=== PATIENT | male | born 1950 | race Caucasian/White ===

== ENCOUNTER 2017-01-06 08:50 | Observation (INO) | payer MEDICARE ==
[2017-01-06] VITALS (11 sets, daily range): BP systolic 116–183; BP diastolic 62–86; PULSE 58–82; RESP 12–18; TEMP 98–98.2; O2SAT 95–98
[~2017-01-06] VITALS: Ht 170.2 cm; Wt 92.7 kg
[~2017-01-06 08:50] MED LIST: IOHEXOL 350 MG/ML 100 ML BTL (for Cath Lab) OTHER ONE
--- NOTE | 2017-01-06 09:25 | PD ---
HPI Chief Complaint: Chest Pain Time Seen by Provider: 09:14 Travel History International Travel<30 days: No Contact w/Intl Traveler<30days: No Traveled to known affect area: No History of Present Illness HPI He complains of chest pain. He was packing to head back to [facility] when he developed an upper chest tightness and heaviness. Lasted about one hour. Paramedics were called and brought him in. He is currently chest pain-free. He had 2 aspirin prior to arrival. He denies history of coronary artery disease. He has not had any recent stress testing. Severity symptoms was moderate. He did get diaphoretic. He did get 3 sublingual nitroglycerin sprays which may have helped somewhat. PFS Social History Alcohol Use: No Tobacco Use: No Substance Use: No Allergies-Medications (Allergen,Severity, Reaction): Coded Allergies: No Known Allergies (Unverified , 01/06/17) Reported Meds & Prescriptions Reported Meds & Active Scripts Active Reported [blood pressure med] Glipizide 5 Mg Tab 5 Mg PO DAILY Take 30 minutes before a meal Fosinopril (Fosinopril Sodium) 20 Mg Tab 20 Mg PO DAILY Glucophage (Metformin HCl) 1,000 Mg Tab 1,000 Mg PO BIDPC With a meal Review of Systems General / Constitutional: No: Fever Eyes: No: Visual changes HENT: No: Headaches Cardiovascular: Positive: Chest Pain or Discomfort, Diaphoresis Respiratory: No: Shortness of Breath Gastrointestinal: No: Abdominal Pain Genitourinary: No: Dysuria Musculoskeletal: No: Pain Skin: No Rash Neurologic: No: Weakness Psychiatric: No: Depression Endocrine: No: Polydipsia Hematologic/Lymphatic: No: Easy Bruising Physical Exam Narrative GENERAL: Well-nourished, well-developed patient in no apparent distress. SKIN: Focused skin assessment reveals no rash and nodules. Skin is Warm and dry. HEAD: Atraumatic. Normocephalic. EYES: Pupils equal and round. No scleral icterus. No injection or drainage. ENT: No nasal bleeding or discharge. Mucous membranes pink and moist. NECK: Trachea midline. No JVD. CARDIOVASCULAR: Regular rate and rhythm. No murmur appreciated. RESPIRATORY: No accessory muscle use. Clear to auscultation. Breath sounds equal bilaterally. GASTROINTESTINAL: Abdomen soft, non-tender, nondistended. Hepatic and splenic margins not palpable. MUSCULOSKELETAL: No obvious deformities. No clubbing. No cyanosis. No edema. NEUROLOGICAL: Awake and alert. No obvious cranial nerve deficits. Motor grossly within normal limits. Normal speech. PSYCHIATRIC: Appropriate mood and affect; insight and judgment normal. Data Data Last Documented VS Vital Signs Date Time Temp Pulse Resp B/P Pulse Ox O2 Delivery O2 Flow Rate FiO2 01/06/17 09:40 98 Nasal Cannula 2 01/06/17 09:40 98.2 69 14 183/86 Orders Electrocardiogram (01/06/17 ) Electrocardiogram (01/06/17 09:19) Basic Metabolic Panel (Bmp) (01/06/17 09:19) Ckmb (Isoenzyme) Profile (01/06/17 09:19) Complete Blood Count With Diff (01/06/17 09:19) Prothrombin Time / Inr (Pt) (01/06/17 09:19) Act Partial Throm Time (Ptt) (01/06/17 09:19) Troponin I (01/06/17 09:19) Chest, Single Ap (01/06/17 09:19) Ecg Monitoring (01/06/17 09:19) Iv Access Insert/Monitor (01/06/17 09:19) Oximetry (01/06/17 09:19) Oxygen Administration (01/06/17 09:19) Sodium Chloride 0.9% Flush (Ns Flush) (01/06/17 09:30) CKMB (01/06/17 09:20) CKMB% (01/06/17 09:20) Consult Cardiology (01/06/17 ) Nitroglycerin 2% Oint (Nitroglycerin 2% (01/06/17 11:30) Admit Order (Ed Use Only) (01/06/17 11:25) Labs Laboratory Tests Test 01/06/17 09:20 White Blood Count 6.4 TH/MM3 Red Blood Count 4.98 MIL/MM3 Hemoglobin 14.9 GM/DL Hematocrit 43.0 % Mean Corpuscular Volume 86.4 FL Mean Corpuscular Hemoglobin 30.0 PG Mean Corpuscular Hemoglobin 34.7 % Concent Red Cell Distribution Width 13.0 % Platelet Count 256 TH/MM3 Mean Platelet Volume 9.4 FL Neutrophils (%) (Auto) 64.8 % Lymphocytes (%) (Auto) 25.2 % Monocytes (%) (Auto) 7.3 % Eosinophils (%) (Auto) 1.9 % Basophils (%) (Auto) 0.8 % Neutrophils # (Auto) 4.2 TH/MM3 Lymphocytes # (Auto) 1.6 TH/MM3 Monocytes # (Auto) 0.5 TH/MM3 Eosinophils # (Auto) 0.1 TH/MM3 Basophils # (Auto) 0.1 TH/MM3 CBC Comment DIFF FINAL Differential Comment Prothrombin Time 10.7 SEC Prothromb Time International 1.0 RATIO Ratio Activated Partial 26.0 SEC Thromboplast Time Sodium Level 139 MEQ/L Potassium Level 4.3 MEQ/L Chloride Level 105 MEQ/L Carbon Dioxide Level 26.5 MEQ/L Anion Gap 8 MEQ/L Blood Urea Nitrogen 14 MG/DL Creatinine 0.97 MG/DL Estimat Glomerular Filtration 77 ML/MIN Rate Random Glucose 178 MG/DL Calcium Level 9.1 MG/DL Total Creatine Kinase 114 U/L Creatine Kinase MB 3.2 NG/ML Troponin I 0.19 NG/ML MDM Medical Decision Making Medical Screen Exam Complete: Yes Emergency Medical Condition: Yes Medical Record Reviewed: Yes Differential Diagnosis Differential diagnosis includes UT, angina, pericarditis, pleurisy, GERD, anxiety. Narrative Course I have reviewed the patient's electronic medical record. Patient is never been here before IV placed I reviewed the EKG which shows sinus rhythm but no ectopy or ST elevation I reviewed the chest x-ray which is normal Extended cardiac monitoring shows sinus rhythm without ectopy CBC is normal Metabolic profile is normal CK is normal Troponin is elevated at 0.19 Coagulation studies are normal Patient at worst case having a non-STEMI. He's had 2 aspirin today and I put some nitroglycerin paste on him. I reviewed with the medical residents will admit and consult a appeals and generalist clerk and asked me to place a consult which I did I rechecked him and he is at this time pain free Is difficult to know what to make of these minor troponin elevations but the next that may be more elevated. There are no ST elevations Discussed heparin/Lovenox and beta-blockade with residents but they're already here to see the patient and will add further orders. Critical Care Narrative Aggregate critical care time was 34 minutes. Time to perform other separately billable procedures was not included in the critical care time. My time did not include minutes spent treating any other patients simultaneously or on activities that did not directly contribute to the patient's treatment. The services I provided to this patient were to treat and/or prevent clinically significant deterioration that could result in: Cardiopulmonary arrest, cardiac arrhythmia, myocardial damage I provided critical care services requiring my management, as noted below: Chart data review, documentation time, medication orders and management, vital sign assessments/reviewing monitor data, ordering and reviewing lab tests, ordering and interpreting/reviewing x-rays and diagnostic studies, care of the patient and discussion of the patient with the admitting physicians. Diagnosis Primary Impression: Non-ST elevated myocardial infarction (non-STEMI) Admitting Information Admitting Physician Requests: Richar Crisostomo MD Jan 06, 2017 09:25
[2017-01-06] MEDS ORDERED: SODIUM CHLORIDE 0.9% FLUSH 10 ML FLUSH IVF PRN (09:30)
[2017-01-06] MEDS ORDERED: GLUC1000 PO (09:48)
[2017-01-06] MEDS ORDERED: FOSI20TA PO (09:48)
[2017-01-06] MEDS ORDERED: blood pressure med (09:50)
[2017-01-06] MEDS ORDERED: GLIP5TAB8 PO (09:50)
[2017-01-06 10:08] LABS: AUTOMATED NEUTROPHIL # 4.2 TH/MM3 (1.8-7.7); BASOPHIL # 0.1 TH/MM3 (0-0.2); BASOPHIL % 0.8 % (0.0-2.0); EOSINOPHIL # 0.1 TH/MM3 (0-0.4); EOSINOPHIL % 1.9 % (0.0-4.0); HEMO FLAGS DIFF FINAL; LYMPH % 25.2 % (9.0-44.0); LYMPHOCYTE # 1.6 TH/MM3 (1.0-4.8); MEAN CELL VOLUME 86.4 FL (80.0-100.0); MEAN CORPUSCULAR HGB CONC 34.7 % (32.0-36.0); MONO % 7.3 % (0.0-8.0); NEUT % 64.8 % (16.0-70.0); PLATELET COUNT 256 TH/MM3 (150-450); RED BLOOD COUNT 4.98 MIL/MM3 (4.50-5.90); WHITE BLOOD COUNT 6.4 TH/MM3 (4.0-11.0)
[2017-01-06 10:23] LABS: PROTHROMBIN TIME - PATIENT 10.7 SEC (9.8-11.6)
--- NOTE | 2017-01-06 10:31 | RADRPT ---
EXAM DATE/TIME: 01/06/2017 09:43 [facility] COMPARISON: No previous studies available for comparison. INDICATIONS : Chest pain. MEDICAL HISTORY : None. SURGICAL HISTORY : None. ENCOUNTER: Initial ACUITY: 1 day PAIN SCORE: 7/10 LOCATION: Bilateral chest FINDINGS: Single AP view of the chest. The lungs are clear. Tortuous thoracic aorta. Cardiomediastinal silhouet te otherwise within normal limits. No evidence of pleural effusion or pneumothorax. CONCLUSION: No acute cardiopulmonary disease identified. Carter Rosa MD on January 06, 2017 at 10:28 Board Certified Radiologist. This report was verified electronically.
[2017-01-06 10:40] LABS: ANION GAP 8 MEQ/L (5-15); BICARBONATE 26.5 MEQ/L (21.0-32.0); BLOOD UREA NITROGEN 14 MG/DL (7-18); CHLORIDE 105 MEQ/L (98-107); CREATINE KINASE 114 U/L (39-308); GLOMERULAR FILTRATION RATE 77 ML/MIN (>89); POTASSIUM 4.3 MEQ/L (3.5-5.1); SODIUM (NA) 139 MEQ/L (136-145)
[2017-01-06 10:53] LABS: CKMB 3.2 NG/ML (0.5-3.6)
[2017-01-06] MEDS ORDERED: NITROGLYCERIN 2% OINT 1 GM PACKET TOPICAL ONE (11:30)
--- NOTE | 2017-01-06 11:37 | HHI.HP ---
[facility] Service Family Medicine Primary Care Physician Non-Staff Admission Diagnosis NSTEMI Diagnoses: International Travel<30 Days: No Contact w/Intl Traveler<30days: No Known Affected Area: No History of Present Illness This a 66-year-old male with past medical history significant for type 2 diabetes, dyslipidemia, and hypertension. He is packing to head back to [place] for the next 8 months, they were loading the car this morning when he felt severe chest pressure. This occurred around 0730. The pain was severe and he needed to sit down, then he felt the need to vomit. After vomiting he became diaphoretic, and this worried him enough to call 911. While at home he took 2 aspirins and during the trip to the hospital he was provided with nitroglycerin. He says that the pain is no longer severe he just feels a dull ache in the center of the chest. He denies any jaw pain or left sided upper extremity numbness or weakness. Review of Systems Constitutional: COMPLAINS OF: Diaphoretic episodes, Fatigue, DENIES: Fever, Chills, Dizziness Endocrine: DENIES: Polyuria Eyes: DENIES: Blurred vision, Eye pain, Vision loss, Double Vision Ears, nose, mouth, throat: COMPLAINS OF: Tinnitus, DENIES: Nasal discharge, Throat pain, Hoarseness, Sinus Pain Respiratory: DENIES: Cough, Wheezing, Sputum production, Shortness of breath Cardiovascular: COMPLAINS OF: Chest pain (pressure), DENIES: Syncope, Dyspnea on Exertion, Orthopnea Gastrointestinal: COMPLAINS OF: Nausea, Vomiting, DENIES: Abdominal pain, Constipation, Diarrhea Genitourinary: DENIES: Urinary frequency, Urinary incontinence, Urgency Musculoskeletal: DENIES: Joint Swelling, Back pain, Neck pain Integumentary: DENIES: Rash Hematologic/lymphatic: DENIES: Bruising, Lymphadenopathy Immunologic/allergic: DENIES: Eczema Neurologic: DENIES: Abnormal gait, Seizures, Tremor, Poor Balance Psychiatric: DENIES: Anxiety, Confusion, Depression Past Family Social History Past Medical History Type 2 Diabetes Dyslipemia Hypertension Past Surgical History none Reported Medications Reported Meds & Active Scripts Active Reported [blood pressure med] Glipizide 5 Mg Tab 5 Mg PO DAILY Take 30 minutes before a meal Fosinopril (Fosinopril Sodium) 20 Mg Tab 20 Mg PO DAILY Glucophage (Metformin HCl) 1,000 Mg Tab 1,000 Mg PO BIDPC With a meal Allergies: Coded Allergies: No Known Allergies (Unverified , 01/06/17) Family History DM Social History Live in [place] in a [facility] for 4 months with his and in [place] the rest of the time 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 SKIN: No rashes, ecchymoses or lesions. Cool and dry. HEAD: Atraumatic. Normocephalic. No temporal or scalp tenderness. EYES: Pupils equal round and reactive. Extraocular motions intact. No scleral icterus. No injection or drainage. ENT: Nose without bleeding, purulent drainage or septal hematoma. Throat without erythema, tonsillar hypertrophy or exudate. Uvula midline. Airway patent. NECK: Trachea midline. No JVD or lymphadenopathy. Supple, nontender, no meningeal signs. CARDIOVASCULAR: Regular rate and rhythm without murmurs, gallops, or rubs. RESPIRATORY: Clear to auscultation. Breath sounds equal bilaterally. No wheezes , rales, or rhonchi. GASTROINTESTINAL: Abdomen soft, non-tender, nondistended. No hepato-splenomegaly , or palpable masses. No guarding. MUSCULOSKELETAL: Extremities without clubbing, cyanosis, or edema. No joint tenderness, effusion, or edema noted. No calf tenderness. Negative Homans sign bilaterally. NEUROLOGICAL: Awake and alert. Cranial nerves II through XII grossly intact. Motor and sensory grossly within normal limits. Normal speech. Laboratory Laboratory Tests Test 01/06/17 09:20 White Blood Count 6.4 Red Blood Count 4.98 Hemoglobin 14.9 Hematocrit 43.0 Mean Corpuscular Volume 86.4 Mean Corpuscular Hemoglobin 30.0 Mean Corpuscular Hemoglobin 34.7 Concent Red Cell Distribution Width 13.0 Platelet Count 256 Mean Platelet Volume 9.4 Neutrophils (%) (Auto) 64.8 Lymphocytes (%) (Auto) 25.2 Monocytes (%) (Auto) 7.3 Eosinophils (%) (Auto) 1.9 Basophils (%) (Auto) 0.8 Neutrophils # (Auto) 4.2 Lymphocytes # (Auto) 1.6 Monocytes # (Auto) 0.5 Eosinophils # (Auto) 0.1 Basophils # (Auto) 0.1 CBC Comment DIFF FINAL Differential Comment Prothrombin Time 10.7 Prothromb Time International 1.0 Ratio Activated Partial 26.0 Thromboplast Time Sodium Level 139 Potassium Level 4.3 Chloride Level 105 Carbon Dioxide Level 26.5 Anion Gap 8 Blood Urea Nitrogen 14 Creatinine 0.97 Estimat Glomerular Filtration 77 Rate Random Glucose 178 Calcium Level 9.1 Total Creatine Kinase 114 Creatine Kinase MB 3.2 Troponin I 0.19 Result Diagram: 01/06/1791901/06/17919 Imaging Current Medications Medications (Trade) Dose Ordered Sig/Sukhwinder Route Start Time Stop Time Status Last Admin Sodium Chloride 2 ml 2 ml UNSCH PRN IVF 01/06/17 09:30 (NS 1000 ml Inj) 1,000 ml @ 125 mls/hr Q8H IV 01/06/17 12:00 (Tylenol) 650 mg Q4H PRN PO 01/06/17 11:45 (Zofran Inj) 4 mg Q6H PRN IVP 01/06/17 11:45 (Milk Of Magnesia Liq) 30 ml Q12H PRN PO 01/06/17 11:45 (Senokot) 17.2 mg Q12H PRN PO 01/06/17 11:45 (Heparin Inj) 5,000 units Q8H SQ 01/06/17 12:00 (Narcan Inj) 0.4 mg UNSCH PRN IV 01/06/17 11:45 (Lipitor) 40 mg DAILY PO 01/07/17 09:00 (Aspirin) 325 mg DAILY PO 01/07/17 09:00 (Prinivil) 20 mg DAILY PO 01/07/17 09:00 EKG reviewed sinus rhythm with no ST elevation or depression Assessment and Plan Assessment and Plan This a 66-year-old male with past medical history significant for type 2 diabetes, dyslipidemia, and hypertension. He is being admitted to observation for ACS rule out due to NSTEMI. Code Status Full code Discussed Condition With WDW: Dr. Mcdowell Problem List: (1) Non-ST elevated myocardial infarction (non-STEMI) Status: Acute Plan: Concern for NSTEMI in the patient. Original troponin elevated at 0.19. Cardiology has been consulted continue to monitor and ACS rule out at this time. * Admit to observation * Cardiology consulted recommendations appreciated * Place on telemetry * Start metoprolol 25 mg by mouth every 12 hours * Aspirin 325 mg daily * Morphine 2 mg IV every 30 minutes when necessary chest pain * Nitroglycerin when necessary chest pain * Zofran 4 mg IV every 6 hours when necessary nausea or vomiting * Trending troponin/CK-MB/EKG results pending * CBC, BMP ordered for the a.m. (2) Hypertension Status: Acute Plan: Long-standing history of hypertension * The lisinopril 20 mg by mouth daily * Metoprolol has been added * Hydralazine/clonidine when necessary hypertension (3) DM (diabetes mellitus) Status: Acute Plan: Patient wants a history of type 2 diabetes managed with metformin * Holding metformin * Place on low dose insulin sliding scale (4) Dyslipidemia Status: Acute Plan: Long-standing history of dyslipidemia * Continue patient's atorvastatin (5) Nutrition, metabolism, and development symptoms Status: Acute Plan: Diet: Heart healthy diet Monitor electrolytes and replace accordingly Vitals every 4 DVT prophylaxis via heparin every 8 and SCDs Bedrest with bathroom privileges CODE STATUS: Full code Disposition: Pending results of labs and cardiology recommendations Problem Qualifiers (1) DM (diabetes mellitus): Qualified Code: E11.8 - Type 2 diabetes mellitus with complication, without long-term current use of insulin Je Chirinos MD R2 Jan 06, 2017 11:37
[2017-01-06] MEDS ORDERED: ACETAMINOPHEN 325 MG TAB PO PRN (11:45)
[2017-01-06] MEDS ORDERED: MAGNESIUM HYDROXIDE SUSP 30 ML CUP PO PRN (11:45)
[2017-01-06] MEDS ORDERED: NALOXONE HCL 0.4 MG/ML AMP IV PRN (11:45)
[2017-01-06] MEDS ORDERED: SENNOSIDES 8.6 MG TAB PO PRN (11:45)
[2017-01-06] MEDS ORDERED: ONDANSETRON HCL 4 MG/2 ML VIAL IVP PRN (11:45)
[2017-01-06] MEDS ORDERED: MORPHINE SULFATE 4 MG/ML INJ IV PRN (12:00)
[2017-01-06] MEDS ORDERED: ASPIRIN 81 MG CHEW TAB CHEW ONE (12:00)
[2017-01-06] MEDS ORDERED: METOPROLOL TARTRATE 25 MG TAB PO SCH (12:00)
[2017-01-06] MEDS ORDERED: HEPARIN SODIUM - SQ 10,000 UNITS/ML VIAL SQ SCH (12:00)
[2017-01-06] MEDS ORDERED: NITROGLYCERIN 0.4 MG SL 25 TABS/BTL SL PRN (12:00)
[2017-01-06] MEDS ORDERED: cloNIDine HCL 0.1 MG TAB PO PRN (12:15)
[2017-01-06] MEDS ORDERED: hydrALAZINE HCL 20 MG/ML VIAL IV PRN (12:15)
[2017-01-06] MEDS: SODIUM CHLOR 0.9% 1000 ML INJ 1,000 ML IV SCH ×2 (12:38→20:00)
[2017-01-06] MEDS: INSULIN ASPART SUPPLEMENTAL SCALE SQ SCH ×2 (16:00→21:00)
[2017-01-06] MEDS ORDERED: HEPARIN 25,000 UNITS-D5W 250 ML - PREMIX IV SCH (17:30)
[2017-01-06] MEDS ORDERED: HEPARIN SODIUM - IV 10,000 UNITS/10 ML VIAL IV ONE (17:45)
--- NOTE | 2017-01-06 17:57 | MB ---
cc: ENID JACOBS DATE OF CONSULTATION 01/06/2017 HISTORY Mr. Frost is a 66-year-old white male with a history of diabetes mellitus, dyslipidemia, hypertension. He has no previous history of coronary artery disease. He was loading the car and planning to leave for [place] this morning and developed substernal chest pressure, nausea, vomiting and diaphoresis. He took two aspirins. He was also given nitroglycerine. His pain significantly improved. Currently he is pain free. His troponin is increased and is consistent with non-ST elevation myocardial infarction. PAST MEDICAL HISTORY Positive for: 1. Type 2 diabetes mellitus. 2. Dyslipidemia. 3. Hypertension. MEDICATIONS Include: 1. Glucophage. 2. Fosinopril. 3. Glipizide. ALLERGIES None. SOCIAL HISTORY The patient does not smoke. He drinks two to three drinks a day. He is and accompanied by his . 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 FAMILY HISTORY Negative for heart disease. REVIEW OF SYSTEMS Otherwise negative. PHYSICAL EXAMINATION VITAL SIGNS: Blood pressure 136/79, pulse 72 and regular. HEENT: Negative. 2+ carotid upstroke. No bruits. LUNGS: Clear. HEART: Regular with no murmur, gallop or rub. ABDOMEN: Soft. No bruits. EXTREMITIES: Without edema. NEUROLOGICAL: Grossly nonfocal. EKG was reviewed and showed normal sinus rhythm. Normal axis and intervals. No ST-T changes. LABORATORY DATA Hemoglobin 14.9. Potassium 4.3. Creatinine 0.97. CK 114 and 207. Troponin 0.19 and 3.94. DIAGNOSES 1. Non-ST elevation myocardial infarction. 2. Diabetes mellitus. 3. Hypertension. 4. Dyslipidemia. DISPOSITION Mr. Frost will undergo cardiac catheterization and coronary intervention if necessary. He and his understand the risks and benefits and wish to proceed. We will intensify aggressive modification of his cardiac risk factors. He will follow up with [employer] in [place] after discharge. MD CANDY Rubin/HELENE /5:35 PM /5:44 PM [facility]INE HOSPITALFeliciano
[2017-01-06] MEDS ORDERED: HEPARIN-NS/PF INJ 500 ML ONE (18:17)
[2017-01-06] MEDS ORDERED: NITROGLYCERIN INJ 5 ML ONE (18:18)
[2017-01-06] MEDS ORDERED: MIDAZOLAM HCL 5 MG/5 ML VIAL ONE (18:18)
[2017-01-06] MEDS ORDERED: HEPARIN SODIUM - IV 10,000 UNITS/10 ML VIAL ONE (18:18)
--- NOTE | 2017-01-06 18:34 | EKG ---
Date Performed: 01/06/2017 Time Performed: 09:05:35 PTAGE: 66 years EKG: Sinus rhythm NORMAL ECG NO PREVIOUS TRACING DOCTOR: Yadi Astudillo Interpretating Date/Time 01/06/2017 18:33:24
[2017-01-06] MEDS ORDERED: MIDAZOLAM HCL 2 MG/2 ML VIAL ONE (19:17)
[2017-01-06] MEDS ORDERED: TICAGRELOR 90 MG TAB PO ONE (19:38)
[2017-01-06] MEDS ORDERED: SODIUM CHLOR 0.9% 1000 ML INJ 1,000 ML IV SCH (19:43)
[2017-01-06] MEDS ORDERED: TEMAZEPAM 15 MG CAP PO PRN (19:45)
[2017-01-06] MEDS ORDERED: MISC INFORMATION XX ONE (19:45)
--- NOTE | 2017-01-06 19:55 | CATHPROC ---
[facility] HIS Report Study Information Study Number Scheduled Start Study Start [id number] 01/06/2017 Jan 06 2017 5:54PM Referring Institution Admit Source Facility Department 1 Other [facility] - [facility] Physician and Clinical Staff Initial Yadi Kemp Board Winder Kristen Hampton,RN Board WinderWinnie Lucio,RN Recorder Rinku Mccrary,RT(R) TECH2 Scrub Vlad Aguilar RCIS(BS) Procedures Performed Procedure Location (Site) Vessel Name Angiogram LV LV Ventricle Coronary Angiograms LCA Left Coronary Coronary Angiograms RCA Right Coronary Drug Eluting Inflatio RCA Prox Right Coronary L Heart Cath PTCA RCA Prox Right Coronary Wire insertion Fem Art (right) Femoral Art Equipment Time Outsole Flexer Description Size Mfg Part Number Used/Scraped COPILOT VALVE, BLEEDBACK 18:57 [employer] [id number] Used CONTROL WIRE, BALANCE MIDDLEWEIGHT 19:04 [employer] 190CM [id number] Used 190CM TRANSDUCER, TRUWAVE 17:56 DON IGLESIAS * [id number] Used W/STOCKCOCK 19:19 DAIG/[employer]. [employer] ANGIOSEAL, FR6 VIP FR 6 [id number] Used 17:56 [employer] IND[employer] PACK, CCL CUSTOM * [id number] Used 17:56 [employer] PACER PEN, SKIN DUAL W/ RULER * [id number] Used 19:10 [employer] BALLOON, 2.0 X 12MM EUPHORA 12MM [id number] Used BALLOON, 4.0 X 8MM NC 19:19 [employer] 8MM [id number] Used EUPHORA 18:59 [employer] CATHETER, EXPORT ASPIRATON EXPORTAP Used STENT, 4.0 15 RESOLUTE 19:13 MEDTRONIC 4.0 15 [id number] Used INTEGRITY RX 19:09 [employer] 30 JUAN RAMON INDEFLATOR [id number] Used [id number] 18:57 [employer] SHEATH, FR6.5 PRELUDE 11CM FR 6.5 Used [id number] 17:56 [employer] WIRE, 3MMJ .035 180CM 180CM [id number] Used PROBE COVER, STERILE 17:56 [employer] / [employer] MEDICAL * [id number] Used ULTRASOUND W/ GEL 17:56 NAMIC MANIFOLD, 4 PORT * [id number] Used 17:56 NAMIC TUBING, HIGH PRESSURE 48" 48" [id number] Used 17:56 [employer]ED OMNIPAQUE, 350 MG, 100ML 100ML [id number] Used 18:56 [employer] OMNIPAQUE, 350 MG, 50ML 50ML [id number] Used 17:56 [employer] BLANKET,WARM AIR CCL * [id number] Used 17:56 [employer] SHEATH, FR5 TERUMO (10CM) FR 5 [id number] Used Equipment Model, Serial, Lot Number and Expiration Data Description Model Number Serial Number Lot Number Expiration Date ANGIOSEAL, FR6 VIP [id number] 10-09-2017 CATHETER, EXPORT ASPIRATON [id number] 07-06-2018 SHEATH, FR6.5 PRELUDE 11CM [id number] 10-09-2019 STENT, 4.0 15 RESOLUTE [id number] 05-14-2018 INTEGRITY RX History: Current Medications Medication Dosage/Unit Route Frequency Last Date/Time Taken HEPARIN Statins (any) ASA LISINOPRIL NTG SL Insulin Magnesium CLONIDINE Glucophage History: Allergies Allergy Reaction No Known Allergies History: Risk Factors Family History of Hypertension Dyslipidemia Previous OK Previous Heart Failure Premature CAD Yes Yes No No No Prior Valve Prior PCI Prior CABG Surgery No No No Cerebrovascular Peripheral Artery Chronic Lung On Dialysis Diabetes Diabetes Therapy Disease Disease Disease No No No No Yes Insulin History: Symptoms/Diagnosis Selection Items Chest pain History: Stress Tests Stress or Imaging Studies Performed No History: Other Disease Selection Items HTN History: Other Current Smoker Method Quit Packs a Day Years Used Pack Years No Cigarettes 40 Years Ago 1 20 20 Diabetic Diet Yes Labs Hgb (g/dl) Hct (%) WBC (l/cumm) Platelets (thousands) 12.00-18.00 37.00-55.00 4.80-10.80 140.00-450.00 14.9 43 6.4 256 BUN (mg/dl) Creatinine (mg/dl) BUN:Creatinine (1:x) 8.00-20.00 0.10-9.00 10.00-20.00 14 0.9 15.6 Na (meq/l) K (meq/l) 138.00-146.00 3.80-5.10 139 4.3 Troponin I (ng/ml) CPK-MB (ng/ML) 0.40-2.30 0.00-7.00 3.9 3.2 Medication Medication Total Dose (Bolus/Oral) Medication Total Dosage/Unit 1% XYLOCAINE 20 mL BRILINTA 180 mg FENTANYL 100 mcg HEPARIN 7000 units NTG (IC) 200 mcg VERSED 5 mg Medications (Bolus/Oral) Medication Time Given Dosage/Unit Administered By Reason VERSED 01/06/2017 6:45:00 PM 2 mg Hesher, Winnie 2 mg VERSED given in lab by Winnie Saldaña RN via Peripheral IV. Ordered by Yadi Astudillo. FENTANYL 01/06/2017 6:46:00 PM 50 mcg Hesher, Winnie 50 mcg FENTANYL given in lab by Winnie Saldaña RN via Peripheral IV. Ordered by Yadi Astudillo. 1% XYLOCAINE 01/06/2017 6:48:26 PM 20 mL Hesher, Winnie 20 mL 1% XYLOCAINE given in lab by Winnie Saldaña RN in Right Groin via Subcutaneous. Ordered by Yadi Ford. VERSED 01/06/2017 6:51:00 PM 1 mg Hesher, Winnie 1 mg VERSED given in lab by Winnie Saldaña RN via Peripheral IV. Ordered by Yadi Astudillo. FENTANYL 01/06/2017 6:52:00 PM 25 mcg Hesher, Winnie 25 mcg FENTANYL given in lab by Winnie Saldaña RN via Peripheral IV. Ordered by Yadi Astudillo. HEPARIN 01/06/2017 6:56:00 PM 7000 units Hesher, Winnie 7000 units HEPARIN given in lab by Winnie Saldaña RN via Peripheral IV. Ordered by Yadi Astudillo. VERSED 01/06/2017 7:20:00 PM 2 mg Hesher, Winnie 2 mg VERSED given in lab by Winnie Saldaña RN via Peripheral IV. Ordered by Yadi Astudillo. FENTANYL 01/06/2017 7:21:00 PM 25 mcg Hesher, Winnie 25 mcg FENTANYL given in lab by Winnie Saldaña RN via Peripheral IV. Ordered by Yadi Astudillo. NTG (IC) 01/06/2017 7:22:19 PM 200 mcg Yadi Astudillo 200 mcg NTG (IC) given in lab by Yadi Astudillo via Intra-coronary. Ordered by aYdi Astudillo. BRILINTA 01/06/2017 7:38:00 PM 180 mg Eldaher, Winnie 180 mg BRILINTA given in lab by Winnie Saldaña RN. Ordered by Yadi Astudillo. Medication (Drip) Medication Time Given Dosage/Unit Concentration/Unit Diluent (ml) Solution IV Solutions 01/06/2017 6:22:55 PM 0 mL (IV) 500 NaCl .9 Patient arrived on IV Solutions in Left Hand via Peripheral IV. Pump/Drip Flow = 20 ml/hr using NaCl .9. Ordered by Yadi Astudillo. Initial Case Assessment Cardiovascular HR Rhythm NIBP Chest Pain 65 sr 142/80 0 Edema Present Skin color Skin None Normal Warm Circulatory - Right Pulses Dorsalis Pedis Femoral 2 2 Scale (0,1,2,3,4,d) Circulatory - Left Pulses Dorsalis Pedis Femoral 2 2 Scale (0,1,2,3,4,d) Circulatory - Lower Extremities Color Lower Right Color Lower Left Normal Normal Neurological State Oriented to time-place- Alert Moves all extremities person Respiration - General SpO2 (%) 99 Final Case Assessment Cardiovascular HR Rhythm 68 sr Edema Present Skin color Skin None Normal Warm Dry Circulatory - Right Pulses Dorsalis Pedis Femoral 2 2 Scale (0,1,2,3,4,d) Circulatory - Left Pulses Dorsalis Pedis Femoral 2 2 Scale (0,1,2,3,4,d) Circulatory - Lower Extremities Color Lower Right Color Lower Left Normal Normal Neurological State Oriented to time-place- Alert Moves all extremities person Respiration - General SpO2 (%) O2 (lpm) 97 2 Chronological Log Time Study Chronological Log 18:22:33 Patient arrived via Bed. 18:22:34 Patient Name, D.O.B, / Armband Verified By R.N. 18:22:35 Consent signed by the physician and the patient and verified by the [employer] [facility] staff. 18:22:39 Patient has been NPO for Less than 6Hrs. 18:22:41 Skin Breakdown. none 18:22:44 Patient Warmer Placed on the Table. 18:22:52 Margarita Prominences Protected 18:22:54 A # 18 IV was noted in the Hand (left). Grade = 0 Patient arrived on IV Solutions in Left Hand via Peripheral IV. Pump/Drip Flow = 20 ml/hr using NaCl .9. Ordered by 18:22:55 Yadi Astudillo. 18:22:56 History and physical on the chart or being dictated. Assessment: Initial Case, HR=65 BPM, Rhythm=sr, EDCI=251/80 mmhg, Chest Pain=0, Edema=None, Col or=Normal, Skin = Warm Right Pulses: Júnior Ped=2, Femoral=2 Left Pulses: Júnior Ped=2, Femoral=2 18:22:57 Lower Right Extremities: Color=Normal Lower Left Extremities: Color=Normal Neurological: State=Alert, Ox3, BAILON Respiration: SpO2=99 % 18:23:02 Table restraints applied according to hospital policy 18:23:06 Bilateral groins prepped with 2% chlorhexidine, and with a 3 min. waiting time. 18:28:27 Reference ECG taken 18:28:30 Reference ECG taken Vitals capture started with the following parameters, Patient=Adult, Interval=15 min, Initial P qhrkmcs=157 mmHg, 18:28:35 Deflation Rate=5 mmHg 18:29:09 HR=51 bpm, MAVC=825/82 mmhg, SpO2=97.0 %, Pain=0, Betty=10, Reich=2 18:31:08 HR=81 bpm, UXLP=950/73 mmhg, SpO2=98.0 % 18:33:09 HR=78 bpm, XIXO=531/83 mmhg, SpO2=99.0 % 18:35:10 HR=26 bpm, UANW=902/77 mmhg, SpO2=99.0 %, Pain=0, Betty=10, Reich=2 18:37:08 HR=65 bpm, CEQL=793/80 mmhg, SpO2=99.0 %, Pain=0, Betty=10, Reich=2 18:39:11 HR=60 bpm, NBQH=099/73 mmhg, SpO2=99.0 %, Resp=0 B/min, Pain=0, Betty=10, Reich=2 18:41:08 HR=65 bpm, ZBYQ=400/71 mmhg, SpO2=99.0 %, Resp=13 B/min, Pain=0, Betty=10, Reich=2 18:41:42 Pressure channel 1 zeroed. 18:43:07 HR=69 bpm, BJZA=195/84 mmhg, SpO2=99.0 %, Resp=14 B/min, Pain=0, Betty=10, Reich=2 18:45:00 2 mg VERSED given in lab by Winnie Saldaña RN via Peripheral IV. Ordered by Radha Astudillo 18:45:10 QY=100 bpm, WXPX=862/81 mmhg, PbH1=957.0 %, Resp=8 B/min, Pain=0, Betty=10, Reich=2 18:46:00 50 mcg FENTANYL given in lab by Winnie Saldaña RN via Peripheral IV. Ordered by Lisa Astudillo. 18:47:11 HR=77 bpm, EASH=176/80 mmhg, SpO2=98.0 %, Resp=13 B/min Time Out. Correct patient, correct procedure,correct physician, ,power injector loaded or not l oaded with contrast with 18:47:58 surgical team present. Time Out Concurred by MD, individual staff and SHOT FIREMAN in procedure 18:48:23 Case Start 20 mL 1% XYLOCAINE given in lab by Winnie Saldaña RN in Right Groin via Subcutaneous. Ordered by Baudilio 18:48:26 Yadi. 18:49:00 Access site was Femoral Artery. 18:49:11 HR=53 bpm, PFSE=376/80 mmhg, SpO2=98.0 %, Resp=12 B/min, Pain=0, Betty=10, Reich=2 A PIGTAIL ANG. INFINITI CATHETER FR 5 was advanced over a wire. OMNIPAQUE, 350 MG, 100ML 100ML was used 18:50:03 for injections. 18:51:00 1 mg VERSED given in lab by Winnie Saldaña RN via Peripheral IV. Ordered by Radha Astudillo Recorded Pressure: LV, HR=77, Condition=Condition 1 18:51:07 (Left Ventricle) LV 129/15/17 18:51:14 HR=82 bpm, QMWF=950/79 mmhg, SpO2=97.0 %, Resp=10 B/min, Pain=0, Betty=10, Reich=2 18:52:00 25 mcg FENTANYL given in lab by Winnie Saldaña RN via Peripheral IV. Ordered by Lisa Astudillo. 18:53:07 HR=67 bpm, PQRG=902/66 mmhg, SpO2=97.0 %, Resp=8 B/min, Pain=0, Betty=10, Reich=2 Recorded Pressure: LV, Ao, HR=76, Condition=Condition 1 18:54:00 (Left Ventricle) LV 110/6/10, (Aorta) Ao 132/76/99 18:55:08 HR=69 bpm, TUJO=760/78 mmhg, SpO2=95.0 %, Resp=12 B/min 18:55:13 The LV was injected at 10 cc/sec for a total of 30. OMNIPAQUE, 350 MG, 50ML 50ML used. 18:56:00 7000 units HEPARIN given in lab by Winnie Saldaña RN via Peripheral IV. Ordered by Yadi Astudilol. After removing the current catheter a AR MOD INFINITI CATHETER FR 5 was advanced over a WIRE, 3 MMJ .035 180CM 18:56:06 180CM. OMNIPAQUE, 350 MG, 100ML 100ML was used for injections. 18:56:21 The RCA was injected and visualized at various angles. OMNIPAQUE, 350 MG, 100ML 100ML used . After removing the current catheter a JL 4.0 INFINITI CATHETER FR 5 was advanced over a WIRE, 3 MMJ .035 180CM 18:56:47 180CM. OMNIPAQUE, 350 MG, 100ML 100ML was used for injections. 18:56:56 The LCA was injected and visualized at various angles. OMNIPAQUE, 350 MG, 100ML 100ML used . 18:57:13 HR=32 bpm, WNVZ=208/74 mmhg, SpO2=98.0 %, Resp=11 B/min, Pain=0, Betty=10, Reich=2 Recorded Pressure: Ao, HR=75, Condition=Condition 1 18:57:47 (Aorta) Ao 111/64/85 18:59:10 HR=83 bpm, XQDF=353/72 mmhg, SpO2=96.0 %, Resp=12 B/min, Pain=0, Betty=10, Reich=2 After removing the current catheter a AR 1 GUIDE CATHETER FR 6 was advanced over a WIRE, 3MMJ . 035 180CM 18:59:58 180CM. OMNIPAQUE, 350 MG, 100ML 100ML was used for injections. 19:01:08 HR=81 bpm, RZBW=710/74 mmhg, SpO2=98.0 %, Resp=11 B/min, Pain=0, Betty=10, Reich=2 19:03:09 HR=42 bpm, QWAU=635/80 mmhg, SpO2=98.0 %, Resp=12 B/min 19:04:24 A wire was inserted via Fem Art (right). 19:05:08 HR=63 bpm, BXUO=935/79 mmhg, SpO2=98.0 %, Resp=12 B/min, Pain=0, Betty=10, Reich=2 19:05:25 A WIRE, BALANCE MIDDLEWEIGHT 190CM 190CM was inserted via Fem Art (right). 19:06:52 Activated Clotting Time Drawn 19:06:54 ACT (Normal Range 90-180) = 298 19:07:11 HR=68 bpm, OMYW=195/73 mmhg, SpO2=99.0 %, Resp=13 B/min 19:07:13 A CATHETER, EXPORT ASPIRATON was advanced over a wire. contrast was used for injections. 19:07:25 Catheter was removed, export cath A BALLOON, 2.0 X 12MM EUPHORA 12MM was inserted over WIRE, BALANCE MIDDLEWEIGHT 190CM 190CM via the 19:07:52 RCA. A BALLOON, 2.0 X 12MM EUPHORA 12MM over a WIRE, BALANCE MIDDLEWEIGHT 190CM 190CM in the RCA Pro x was 19:08:23 inflated using a 30 JUAN RAMON INDEFLATOR at 16 juan ramon for 20 sec. 19:09:51 HR=80 bpm, QZPF=491/79 mmhg, Resp=12 B/min, Pain=0, Betty=10, Reich=2 19:10:02 Balloon Removed. 19:11:13 HR=27 bpm, AERK=565/90 mmhg, SpO2=98.0 %, Resp=12 B/min, Pain=0, Betty=10, Reich=2 19:13:11 HR=52 bpm, PVWA=373/88 mmhg, SpO2=97.0 %, Resp=12 B/min A STENT, 4.0 15 RESOLUTE INTEGRITY RX 4.0 15 was advanced through a AR 1 GUIDE CATHETER FR 6 ov er a WIRE, 19:13:30 BALANCE MIDDLEWEIGHT 190CM 190CM. A STENT, 4.0 15 RESOLUTE INTEGRITY RX 4.0 15 was deployed using a 30 JUAN RAMON INDEFLATOR at 9 atmosp heres for 30 19:14:33 seconds in the RCA Prox. 19:15:11 Delivery device removed 19:15:12 HR=71 bpm, UEUA=808/79 mmhg, SpO2=97.0 %, Resp=15 B/min 19:17:13 HR=71 bpm, GGTX=148/77 mmhg, SpO2=98.0 %, Resp=13 B/min A BALLOON, 4.0 X 8MM NC EUPHORA 8MM was inserted over WIRE, BALANCE MIDDLEWEIGHT 190CM 190CM vi a the 19:17:48 RCA. A BALLOON, 4.0 X 8MM NC EUPHORA 8MM over a WIRE, BALANCE MIDDLEWEIGHT 190CM 190CM in the RCA Pr ox 19:18:25 was inflated using a 30 JUAN RAMON INDEFLATOR at 14 juan ramon for 40 sec. 19:19:01 Balloon Removed. 19:20:00 2 mg VERSED given in lab by Winnie Saldaña, RICARDO via Peripheral IV. Ordered by Radha Astudillo 19:20:01 HR=75 bpm, PGSR=529/76 mmhg, LjZ9=288.0 %, Resp=13 B/min, Pain=0, Betty=10, Reich=2 Recorded Pressure: Ao, HR=74, Condition=Condition 1 19:20:29 (Aorta) Ao 149/83/112 Recorded Pressure: Ao, HR=78, Condition=Condition 1 19:20:54 (Aorta) Ao 138/79/107 19:21:00 25 mcg FENTANYL given in lab by Winnie Saldaña, RICARDO via Peripheral IV. Ordered by Lisa Astudillo 19:21:11 HR=67 bpm, UPTX=590/71 mmhg, ZlS0=789.0 %, Resp=13 B/min, Pain=0, Betty=10, Reich=2 Recorded Pressure: Ao, HR=79, Condition=Condition 1 19:21:31 (Aorta) Ao 152/86/117 19:22:19 200 mcg NTG (IC) given in lab by Yadi Astudillo via Intra-coronary. Ordered by Alex Astudillo 19:23:28 HR=82 bpm, QCHG=871/84 mmhg, SpO2=98.0 %, Resp=15 B/min 19:25:00 Balloon Removed. 19:25:12 HR=40 bpm, BXIC=486/84 mmhg, SpO2=96.0 %, Resp=14 B/min 19:25:24 An injection in the ~SITE~ was made through the sheath. Assessment: Final Case, HR=68 BPM, Rhythm=sr, Edema=None, Color=Normal, Skin = Warm, Dry Right Pulses: Júnior Ped=2, Femoral=2 Left Pulses: Júnior Ped=2, Femoral=2 19:25:40 Lower Right Extremities: Color=Normal Lower Left Extremities: Color=Normal Neurological: State=Alert, Ox3, BAILON Respiration: SpO2=97 %, O2=2 lpm 19:27:13 HR=19 bpm, ENXJ=307/85 mmhg, SpO2=99.0 %, Resp=13 B/min 19:29:16 HR=72 bpm, AOVA=353/75 mmhg, SpO2=98.0 %, Resp=12 B/min 19:31:15 HR=26 bpm, EUOV=493/84 mmhg, SpO2=99.0 %, Resp=11 B/min, Pain=0, Betty=10, Reich=2 19:31:43 ANGIOSEAL, FR6 VIP FR 6 placement in the Fem Art (right) 19:32:00 Case End 19:32:03 Sterile dressing applied to site 19:32:04 No case complications noted. 19:32:07 Cine recording checked. 19:32:08 Bedside Report will be given. 19:32:11 Implantable Device card placed in patient's chart. 19:32:14 Contrast Scanned 19:32:16 A Left Heart Cath was performed. PCI QA completed: Pre-Napoleon - 1, Post Napoleon - 3, Type - A, Length - 10 mm, Morphology - Concentri c, Indications - Lesion 19:33:01 > 50 non-stem, Pre-Stenosis - 99% and Post Stenosis - 0%. 19:38:00 180 mg BRILINTA given in lab by Winnie Saldaña RN. Ordered by Yadi Astudillo. 19:42:23 Patient moved to stretcher End Study - Contrast Media Used In Study Contrast Total Opened (mL) Total Used (mL) Total Wasted (mL) Omnipaque 200 175 25 End Study - Maximum Contrast Load Max Contrast Load (mL) 527.8 End Study - Radiation Exposure Fluoro Time (minutes) 6.6 End Study - Sheaths Sheaths Pulled By Sheath Hold Time (min) Yadi Astudillo End Study - Patient Disposition Complications Transferred To Interventional Outcome No Telemetry Bed successful
[2017-01-06] MEDS: METOPROLOL TARTRATE 25 MG TAB PO SCH (22:31)
[2017-01-07] VITALS (18 sets, daily range): BP systolic 115–154; BP diastolic 66–97; PULSE 53–75; RESP 18–20; TEMP 97.8–98.7; O2SAT 95–97
[2017-01-07] MEDS: INSULIN ASPART SUPPLEMENTAL SCALE SQ SCH ×3 (07:00→16:22)
[2017-01-07] MEDS ORDERED: TICAGRELOR 90 MG TAB PO SCH (09:00)
[2017-01-07] MEDS ORDERED: ASPIRIN 325 MG TAB PO SCH ×2 (09:00)
[2017-01-07] MEDS ORDERED: ATORVASTATIN 40 MG TAB PO SCH ×2 (09:00)
[2017-01-07] MEDS ORDERED: LISINOPRIL 20 MG TAB PO SCH (09:00)
[2017-01-07] MEDS: METOPROLOL TARTRATE 25 MG TAB PO SCH (09:17)
[2017-01-07 09:36] LABS: AUTOMATED NEUTROPHIL # 4.1 TH/MM3 (1.8-7.7); BASOPHIL % 0.7 % (0.0-2.0); EOSINOPHIL # 0.1 TH/MM3 (0-0.4); EOSINOPHIL % 0.8 % (0.0-4.0); HEMO FLAGS DIFF FINAL; LYMPH % 25.9 % (9.0-44.0); LYMPHOCYTE # 1.7 TH/MM3 (1.0-4.8); MEAN CELL VOLUME 87.5 FL (80.0-100.0); MEAN CORPUSCULAR HGB CONC 33.1 % (32.0-36.0); MONO % 8.6 % (0.0-8.0); PLATELET COUNT 273 TH/MM3 (150-450); RED BLOOD COUNT 5.03 MIL/MM3 (4.50-5.90); RED CELL DISTRIBUTION WIDTH 12.7 % (11.6-17.2); WHITE BLOOD COUNT 6.4 TH/MM3 (4.0-11.0)
[2017-01-07 10:05] LABS: ANION GAP 10 MEQ/L (5-15); BICARBONATE 26.3 MEQ/L (21.0-32.0); BLOOD UREA NITROGEN 8 MG/DL (7-18); CHLORIDE 105 MEQ/L (98-107); CREATINE KINASE 266 U/L (39-308); GLOMERULAR FILTRATION RATE 105 ML/MIN (>89); HDL CHOLESTEROL 40.2 MG/DL (40.0-60.0); LDL CHOLESTEROL 64 MG/DL (0-99); POTASSIUM 3.8 MEQ/L (3.5-5.1); SODIUM (NA) 141 MEQ/L (136-145)
[2017-01-07 10:26] LABS: CKMB 21.9 NG/ML (0.5-3.6)
--- NOTE | 2017-01-07 11:34 | HHI.HP ---
[facility] Service Family Medicine Primary Care Physician Non-Staff Admission Diagnosis NSTEMI Diagnoses: (1) Non-ST elevated myocardial infarction (non-STEMI) Diagnosis: Principal (2) Hypertension Diagnosis: Principal (3) DM (diabetes mellitus) (4) Dyslipidemia Diagnosis: Principal (5) Nutrition, metabolism, and development symptoms Diagnosis: Principal International Travel<30 Days: No Contact w/Intl Traveler<30days: No Known Affected Area: No History of Present Illness Mr Frost a 66-year-old male with past medical history significant for type 2 diabetes, dyslipidemia, and hypertension. He was packing to head back to [place] for the next 8 months, they were loading the car the morning of admission when he felt severe chest pressure. This occurred around 0730. The pain was severe and he needed to sit down, then he felt the need to vomit. After vomiting he became diaphoretic, and this worried him enough to call 911. While at home he took 2 aspirins and during the trip to the hospital he was provided with nitroglycerin. He says that the pain is no longer severe he just feels a dull ache in the center of the chest. He denies any jaw pain or left sided upper extremity numbness or weakness. He had an increase in his troponins to over 3 and went for cath yesterday where he had a stent placed in his RCA. He feels fine today and has no complaints this am. Review of Systems Other Constitutional: COMPLAINS OF: Diaphoretic episodes, Fatigue, DENIES: Fever, Chills, Dizziness Endocrine: DENIES: Polyuria Eyes: DENIES: Blurred vision, Eye pain, Vision loss, Double Vision Ears, nose, mouth, throat: COMPLAINS OF: Tinnitus, DENIES: Nasal discharge, Throat pain, Hoarseness, Sinus Pain Respiratory: DENIES: Cough, Wheezing, Sputum production, Shortness of breath Cardiovascular: COMPLAINS OF: Chest pain (pressure), DENIES: Syncope, Dyspnea on Exertion, Orthopnea Gastrointestinal: COMPLAINS OF: Nausea, Vomiting, DENIES: Abdominal pain, Constipation, Diarrhea Genitourinary: DENIES: Urinary frequency, Urinary incontinence, Urgency Musculoskeletal: DENIES: Joint Swelling, Back pain, Neck pain Integumentary: DENIES: Rash Hematologic/lymphatic: DENIES: Bruising, Lymphadenopathy Immunologic/allergic: DENIES: Eczema Neurologic: DENIES: Abnormal gait, Seizures, Tremor, Poor Balance Psychiatric: DENIES: Anxiety, Confusion, Depression Past Family Social History Past Medical History Type 2 Diabetes Dyslipemia Hypertension Past Surgical History none Allergies: Coded Allergies: No Known Allergies (Unverified , 01/06/17) Family History DM Social History [facility] [place] [facility] with his and in [place] the rest of the time 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 Denies smoking 2 alcohol a day denies drugs Physical Exam Vital Signs Vital Signs Date Time Temp Pulse Resp B/P Pulse Ox O2 Delivery O2 Flow Rate FiO2 01/07/17 11:00 97.8 53 20 115/66 97 01/07/17 11:00 56 01/07/17 10:00 60 01/07/17 09:00 62 01/07/17 08:00 73 01/07/17 07:52 95 21 01/07/17 07:00 55 01/07/17 07:00 98.3 75 20 127/76 96 01/07/17 06:00 75 01/07/17 05:06 60 01/07/17 04:00 75 01/07/17 04:00 98.0 57 18 154/89 97 01/07/17 03:33 57 01/07/17 02:00 58 01/07/17 01:00 68 01/07/17 00:00 98.0 69 18 150/97 97 01/07/17 00:00 60 01/06/17 23:00 58 01/06/17 22:00 60 01/06/17 21:00 61 01/06/17 20:00 73 01/06/17 19:57 68 01/06/17 19:57 98.2 68 18 116/62 97 01/06/17 19:57 98.2 68 18 116/62 97 01/06/17 15:44 72 12 136/79 97 Nasal Cannula 2 01/06/17 14:31 98.0 76 14 136/72 97 Nasal Cannula 2 01/06/17 14:28 78 14 136/79 98 Nasal Cannula 2 01/06/17 12:45 80 16 129/77 97 Nasal Cannula 2 Physical Exam GENERAL: This is a well-nourished, well-developed patient, in no apparent distress. sitting up in chair after yesterday's cath SKIN: No rashes, ecchymoses or lesions. Cool and dry. HEAD: Atraumatic. Normocephalic. EYES: Pupils equal round and reactive. Extraocular motions intact. No scleral icterus. No injection or drainage. ENT: Nose without bleeding, purulent drainage or septal hematoma. [place] patent. NECK: Trachea midline. No JVD or lymphadenopathy. Supple, nontender, no meningeal signs. CARDIOVASCULAR: Regular rate and rhythm without murmurs, gallops, or rubs. RESPIRATORY: Clear to auscultation. Breath sounds equal bilaterally. No wheezes , rales, or rhonchi. GASTROINTESTINAL: Abdomen soft, non-tender, nondistended. No hepato-splenomegaly , or palpable masses. No guarding. MUSCULOSKELETAL: Extremities without clubbing, cyanosis, or edema. No joint tenderness, effusion, or edema noted. No calf tenderness. Negative Homans sign bilaterally. NEUROLOGICAL: Awake and alert. Cranial nerves II through XII grossly intact. Motor and sensory grossly within normal limits. Normal speech. Laboratory Laboratory Tests Test 01/06/17 01/06/17 01/07/17 01/07/17 13:15 21:45 08:22 08:32 Total Creatine Kinase 207 224 266 Troponin I 3.94 5.96 Sodium Level 141 Potassium Level 3.8 Chloride Level 105 Carbon Dioxide Level 26.3 Anion Gap 10 Blood Urea Nitrogen 8 Creatinine 0.74 Estimat Glomerular Filtration 105 Rate Random Glucose 170 Calcium Level 8.6 Creatine Kinase MB 21.9 Triglycerides Level 304 Cholesterol Level 165 LDL Cholesterol 64 HDL Cholesterol 40.2 Cholesterol/HDL Ratio 4.10 White Blood Count 6.4 Red Blood Count 5.03 Hemoglobin 14.6 Hematocrit 44.0 Mean Corpuscular Volume 87.5 Mean Corpuscular Hemoglobin 29.0 Mean Corpuscular Hemoglobin 33.1 Concent Red Cell Distribution Width 12.7 Platelet Count 273 Mean Platelet Volume 8.9 Neutrophils (%) (Auto) 64.0 Lymphocytes (%) (Auto) 25.9 Monocytes (%) (Auto) 8.6 Eosinophils (%) (Auto) 0.8 Basophils (%) (Auto) 0.7 Neutrophils # (Auto) 4.1 Lymphocytes # (Auto) 1.7 Monocytes # (Auto) 0.6 Eosinophils # (Auto) 0.1 Basophils # (Auto) 0.0 CBC Comment DIFF FINAL Differential Comment Result Diagram: 01/07/17 0832 01/07/17 0822 Imaging Current Medications Medications (Trade) Dose Ordered Sig/Sukhwinder Route Start Time Stop Time Status Last Admin Sodium Chloride 2 ml 2 ml UNSCH PRN IVF 01/06/17 09:30 (NS 1000 ml Inj) 1,000 ml @ 125 mls/hr Q8H IV 01/06/17 12:00 (Tylenol) 650 mg Q4H PRN PO 01/06/17 11:45 (Zofran Inj) 4 mg Q6H PRN IVP 01/06/17 11:45 (Milk Of Magnesia Liq) 30 ml Q12H PRN PO 01/06/17 11:45 (Senokot) 17.2 mg Q12H PRN PO 01/06/17 11:45 (Heparin Inj) 5,000 units Q8H SQ 01/06/17 12:00 (Narcan Inj) 0.4 mg UNSCH PRN IV 01/06/17 11:45 (Lipitor) 40 mg DAILY PO 01/07/17 09:00 (Aspirin) 325 mg DAILY PO 01/07/17 09:00 (Prinivil) 20 mg DAILY PO 01/07/17 09:00 EKG reviewed sinus rhythm with no ST elevation or depression Assessment and Plan Assessment and Plan This a 66-year-old male with past medical history significant for type 2 diabetes, dyslipidemia, and hypertension. He is being admitted to observation for ACS rule out due to NSTEMI. Problem List: (1) Non-ST elevated myocardial infarction (non-STEMI) Status: Acute Plan: Concern for NSTEMI in the patient. Original troponin elevated at 0.19. Cardiology has been consulted continue to monitor and ACS rule out at this time. * Admit to observation, with PR should qualify for inpatient * Cardiology consulted recommendations appreciated went to cath * Placed on telemetry * Start metoprolol 25 mg by mouth every 12 hours, now increased * Aspirin 325 mg daily * Morphine 2 mg IV every 30 minutes when necessary chest pain * Nitroglycerin when necessary chest pain * Zofran 4 mg IV every 6 hours when necessary nausea or vomiting * Trending troponin/CK-MB/EKG results pending, second troponin markedly elevated * CBC, BMP ordered for the a.m. (2) Hypertension Status: Acute Plan: Long-standing history of hypertension * The lisinopril 20 mg by mouth daily * Metoprolol has been added * Hydralazine/clonidine when necessary hypertension (3) DM (diabetes mellitus) Status: Acute Plan: Patient wants a history of type 2 diabetes managed with metformin * Holding metformin * Place on low dose insulin sliding scale (4) Dyslipidemia Status: Acute Plan: Long-standing history of dyslipidemia * Continue patient's atorvastatin (5) Nutrition, metabolism, and development symptoms Status: Acute Plan: Diet: Heart healthy diet Monitor electrolytes and replace accordingly Vitals every 4 DVT prophylaxis via heparin every 8 and SCDs Bedrest with bathroom privileges CODE STATUS: Full code Disposition: Pending results of labs and cardiology recommendations, hopefully tomorrow Physician Certification 2 Midnight Certification Type: Admission for Inpatient Services Order for Inpatient Services The services are ordered in accordance with Medicare regulations or non- Medicare payer requirements, as applicable. In the case of services not specified as inpatient-only, they are appropriately provided as inpatient services in accordance with the 2-midnight benchmark. Estimated LOS (days): 3 3 days is the estimated time the patient will need to remain in the hospital, assuming treatment plan goals are met and no additional complications. Post-Hospital Plan: Home Problem Qualifiers (1) Hypertension: Qualified Code: I10 - Essential hypertension (2) DM (diabetes mellitus): Qualified Code: E11.8 - Type 2 diabetes mellitus with complication, without long-term current use of insulin Winnie Mcdowell MD January 07, 2017 11:34
[2017-01-07] MEDS: SODIUM CHLOR 0.9% 1000 ML INJ 1,000 ML IV SCH (12:00)
--- NOTE | 2017-01-07 16:09 | PD.CARD.PN ---
Subjective Subjective Remarks No CP or SOB, feels well Objective Medications Current Medications Medications (Trade) Dose Ordered Sig/Sukhwinder Route Start Time Stop Time Status Last Admin Sodium Chloride 2 ml 2 ml UNSCH PRN IVF 01/06/17 09:30 (NS 1000 ml Inj) 1,000 ml @ 125 mls/hr Q8H IV 01/06/17 12:00 01/06/17 12:38 (Tylenol) 650 mg Q4H PRN PO 01/06/17 11:45 (Zofran Inj) 4 mg Q6H PRN IVP 01/06/17 11:45 (Milk Of Magnesia Liq) 30 ml Q12H PRN PO 01/06/17 11:45 (Senokot) 17.2 mg Q12H PRN PO 01/06/17 11:45 (Narcan Inj) 0.4 mg UNSCH PRN IV 01/06/17 11:45 (Prinivil) 20 mg DAILY PO 01/07/17 09:00 01/07/17 09:17 (Nitrostat Sl) 0.4 mg Q5M PRN SL 01/06/17 12:00 (Morphine Inj) 2 mg Q30M PRN IV 01/06/17 12:00 (Apresoline Inj) 10 mg Q6H PRN IV 01/06/17 12:15 (Catapres) 0.1 mg Q6H PRN PO 01/06/17 12:15 (Aspirin) 81 mg DAILY PO 01/07/17 09:00 01/07/17 09:16 (Lipitor) 80 mg DAILY PO 01/07/17 09:00 01/07/17 09:16 (Lopressor) 25 mg Q12HR PO 01/06/17 21:00 01/07/17 09:17 (Restoril) 15 mg HS PRN PO 01/06/17 19:45 (Brilinta) 90 mg BID PO 01/07/17 09:00 01/07/17 09:17 Vital Signs / I&O Vital Signs Date Time Temp Pulse Resp B/P Pulse Ox O2 Delivery O2 Flow Rate FiO2 01/07/17 15:00 98.7 59 20 128/72 96 01/07/17 15:00 63 01/07/17 14:00 59 01/07/17 13:00 65 01/07/17 12:00 54 01/07/17 11:00 97.8 53 20 115/66 97 01/07/17 11:00 56 01/07/17 10:00 60 01/07/17 09:00 62 01/07/17 08:00 73 01/07/17 07:52 95 21 01/07/17 07:00 55 01/07/17 07:00 98.3 75 20 127/76 96 01/07/17 06:00 75 01/07/17 05:06 60 01/07/17 04:00 75 01/07/17 04:00 98.0 57 18 154/89 97 01/07/17 03:33 57 01/07/17 02:00 58 01/07/17 01:00 68 01/07/17 00:00 98.0 69 18 150/97 97 01/07/17 00:00 60 01/06/17 23:00 58 01/06/17 22:00 60 01/06/17 21:00 61 01/06/17 20:00 73 01/06/17 19:57 68 01/06/17 19:57 98.2 68 18 116/62 97 01/06/17 19:57 98.2 68 18 116/62 97 I/O 01/06/17 01/06/17 01/06/17 01/07/17 01/07/17 01/07/17 07:00 15:00 23:00 07:00 15:00 23:00 Intake Total 1340 ml Output Total 875 ml Balance 465 ml Intake Oral 240 ml IV Total 1100 ml Output Urine Total 875 ml Physical Exam GENERAL: IN NAD SKIN: Warm and dry. HEAD: Normocephalic. EYES: No scleral icterus. No injection or drainage. NECK: Supple, trachea midline. No JVD or lymphadenopathy. CARDIOVASCULAR: Regular rate and rhythm without murmurs, gallops, or rubs. RESPIRATORY: Breath sounds equal bilaterally. No accessory muscle use. GASTROINTESTINAL: Abdomen soft, non-tender, nondistended. MUSCULOSKELETAL: No cyanosis, or edema. Groin stable Laboratory Laboratory Tests Test 01/06/17 01/07/17 01/07/17 21:45 08:22 08:32 Total Creatine Kinase 224 U/L 266 U/L Troponin I 5.96 NG/ML Sodium Level 141 MEQ/L Potassium Level 3.8 MEQ/L Chloride Level 105 MEQ/L Carbon Dioxide Level 26.3 MEQ/L Anion Gap 10 MEQ/L Blood Urea Nitrogen 8 MG/DL Creatinine 0.74 MG/DL Estimat Glomerular Filtration 105 ML/MIN Rate Random Glucose 170 MG/DL Calcium Level 8.6 MG/DL Creatine Kinase MB 21.9 NG/ML Triglycerides Level 304 MG/DL Cholesterol Level 165 MG/DL LDL Cholesterol 64 MG/DL HDL Cholesterol 40.2 MG/DL Cholesterol/HDL Ratio 4.10 RATIO White Blood Count 6.4 TH/MM3 Red Blood Count 5.03 MIL/MM3 Hemoglobin 14.6 GM/DL Hematocrit 44.0 % Mean Corpuscular Volume 87.5 FL Mean Corpuscular Hemoglobin 29.0 PG Mean Corpuscular Hemoglobin 33.1 % Concent Red Cell Distribution Width 12.7 % Platelet Count 273 TH/MM3 Mean Platelet Volume 8.9 FL Neutrophils (%) (Auto) 64.0 % Lymphocytes (%) (Auto) 25.9 % Monocytes (%) (Auto) 8.6 % Eosinophils (%) (Auto) 0.8 % Basophils (%) (Auto) 0.7 % Neutrophils # (Auto) 4.1 TH/MM3 Lymphocytes # (Auto) 1.7 TH/MM3 Monocytes # (Auto) 0.6 TH/MM3 Eosinophils # (Auto) 0.1 TH/MM3 Basophils # (Auto) 0.0 TH/MM3 CBC Comment DIFF FINAL Differential Comment Imaging Last Impressions Chest X-Ray 01/06/17 0919 Signed Impressions: Service Date/Time: Friday, January 06, 2017 09:43 - CONCLUSION: No acute cardiopulmonary disease identified. Carter Rosa MD Assessment and Plan Problem List: (1) Non-ST elevated myocardial infarction (non-STEMI) (2) CAD (coronary artery disease) (3) DM (diabetes mellitus) (4) Hypertension (5) Dyslipidemia Assessment and Plan Continue Brilinta and baby ASA. Aggressive risk factor modification incl high dose statin. Continue beta rahat and REAL-I. DC home. Referred to card rehab. Staying in [place] for one more week, then travelling back home. Problem Qualifiers (1) DM (diabetes mellitus): Qualified Code: E11.8 - Type 2 diabetes mellitus with complication, without long-term current use of insulin (2) Hypertension: Qualified Code: I10 - Essential hypertension Yadi Astudillo MD January 07, 2017 16:09
[2017-01-07] MEDS ORDERED: BRIL90TA PO (16:56)
[2017-01-07] MEDS ORDERED: ATOR40TA16 PO (16:56)
[2017-01-07] MEDS ORDERED: METO25TA3 PO (16:56)
[2017-01-07] MEDS ORDERED: ASPI325T PO (16:56)
[2017-01-07] MEDS ORDERED: LISI-515 PO (16:56)
--- NOTE | 2017-01-07 16:57 | HHI.DCPOC ---
Discharge Care Plan Diagnosis: (1) CAD (coronary artery disease) (2) Hypertension (3) Non-ST elevated myocardial infarction (non-STEMI) (4) DM (diabetes mellitus) (5) Dyslipidemia Goals to Promote Your Health * To prevent worsening of your condition and complications * To maintain your health at the optimal level Directions to Meet Your Goals Take your medications as prescribed Follow your dietary instruction Follow activity as directed Keep your appointments as scheduled Take your immunizations and boosters as scheduled If your symptoms worsen call your PCP, if no PCP go to Urgent Care Center or Emergency Room Smoking is Dangerous to Your Health. Avoid second hand smoke Call the 24-hour hour crisis hotline for domestic abuse at Homa Ariza MD R1 January 07, 2017 16:56
--- NOTE | 2017-01-07 22:44 | EKG ---
Date Performed: 01/07/2017 Time Performed: 04:40:08 PTAGE: 66 years EKG: Sinus arrhythmia Possible inferior infarct - age undetermined Abnormal ECG PREVIOUS TRACING : 01/06/2017 20.53 Compared to prior tracing no significant change DOCTOR: Huey Sneed Interpretating Date/Time 01/07/2017 22:44:14
--- NOTE | 2017-01-07 22:52 | EKG ---
Date Performed: 01/06/2017 Time Performed: 20:53:54 PTAGE: 66 years EKG: Sinus arrhythmia Possible inferior infarct - age undetermined Abnormal ECG PREVIOUS TRACING : 01/06/2017 17.04 Compared to prior tracing no significant change DOCTOR: Huey Sneed Interpretating Date/Time 01/07/2017 22:51:19
--- NOTE | 2017-01-07 23:02 | EKG ---
Date Performed: 01/06/2017 Time Performed: 17:04:24 PTAGE: 66 years EKG: Sinus rhythm WITH SINUS ARRHYTHMIA WITH SHORT FL INTERVAL INFERIOR MYOCARDIAL INFARCTION ABNORMAL ECG PREVIOUS TRACING : 01/06/2017 15.14 Compared to prior tracing no significant change DOCTOR: Huey Sneed Interpretating Date/Time 01/07/2017 23:00:20
--- NOTE | 2017-01-07 23:04 | EKG ---
Date Performed: 01/06/2017 Time Performed: 15:14:55 PTAGE: 66 years EKG: Sinus rhythm INFERIOR MYOCARDIAL INFARCTION ABNORMAL ECG PREVIOUS TRACING : 01/06/2017 09.05 DOCTOR: Huey Sneed Interpretating Date/Time 01/07/2017 23:02:33
--- NOTE | 2017-01-08 08:28 | MA ---
cc: ENID JACOBS DATE 01/06/2017 INDICATIONS Non-ST elevation myocardial infarction, class IV angina. PROCEDURE PERFORMED 1. Retrograde left heart catheterization with left ventriculography and selective coronary angiography. 2. Thrombectomy, angioplasty, and stenting of the proximal right coronary artery. 3. Moderate sedation. ACCESS SITE Right femoral artery EQUIPMENT USED 5 Canadian pigtail catheter, 5 Canadian JL4 and AR modified coronary artery catheters, AR1 guide, BMW wire, export thrombectomy catheter, 2.0 balloon for predilatation, 4.0 x 15 mm Resolute stent at 9 atmospheres post dilated with 4.0 x 8 mm noncompliant balloon at 14 atmospheres. MEDICATIONS Versed IV, Fentanyl IV, heparin IV, nitroglycerin IC, Brilinta 180 mg p.o. IV CONTRAST Omnipaque 175 cc COMPLICATIONS None BLOOD LOSS emery than 10 cc. METHOD OF HEMOSTASIS Angio-Seal closure RESULTS HEMODYNAMICS Heart rate 80 beats per minute Left ventricular end-diastolic pressure 6 mmHg Left ventricle 130/6. Aorta 130/86/117 LEFT VENTRICULOGRAPHY Left ventricular ejection fraction 45%. Wall motion: inferior dyskinesis. No mitral regurgitation. CORONARY ANGIOGRAPHY Left main coronary artery has 30% stenosis in the mid portion. D1 is patent. Left circumflex artery is patent. OM-1 is a large vessel with 30% proximal stenosis. Right coronary artery is a dominant vessel with 99% stenosis in the proximal portion with thrombus and 40% stenosis in the mid portion. PDA is patent. PLV is patent. The stenosis in the right coronary artery was 10 mm long, pre-ALMA flow one, post-ALMA flow three, post-stenosis 0. Post intervention angiography with excellent patency of the stented segment and no evidence of dissection, thrombosis or distal embolization. DIAGNOSIS 1. Acute non-ST elevation myocardial infarction. 2. Coronary artery disease with 99% stenosis in the proximal RCA with thrombus. 3. Successful thrombectomy, angioplasty, and stenting of the proximal right coronary artery. 4. Mild left ventricular systolic dysfunction consistent with ischemic cardiomyopathy. DISPOSITION Mr. Frost will be monitored on telemetry with serial enzymes and EKG's. I recommend to continue antiplatelet therapy with Brilinta for at least one year and baby aspirin indefinitely. I also recommend aggressive modification of his cardiac risk factors. He will follow up with his christian counselor in [place] after discharge. MD JEAN-PAUL Rubin /7:41 PM /8:15 AM CARLOZ
== END 2017-01-07 17:34 | disposition home or self-care (01) ==
LOC: NEPC 10:05 → NEDA 11:27 → UNDOADMIN 11:27 → NEDA 11:39 → INTOOBSV 11:39 → N04A 17:19 → HCIS 18:36 → HCIN 20:12
PROVIDERS: ADMIT Family Medicine; ATTEND Family Medicine
DX: I21.4 Non-ST elevation (NSTEMI) myocardial infarction (principal); I10 Essential (primary) hypertension; E78.5 Hyperlipidemia, unspecified; E11.8 Type 2 diabetes mellitus with unspecified complications; R11.10 Vomiting, unspecified; Z79.84 Long term (current) use of oral hypoglycemic drugs; Z79.899 Other long term (current) drug therapy; I25.119 Atherosclerotic heart disease of native coronary artery with unspecified angina pectoris; I25.5 Ischemic cardiomyopathy
CPT/HCPCS: 71010; 80048; 80061; 82550; 82552; 82948; 84484; 85002; 85025; 85610; 85730; 92928; 92973; 93005; 93458; 97161; 99291; C1725; C1757; C1760; C1769; C1874; C1887; C1893; G0269; G0378; G8987; G8988; J1644; J1815; J2250; J3010; J7030; Q9967

== ENCOUNTER 2017-10-25 10:02 | Day surgery (SDC) | payer MEDICARE ==
[~2017-10-25 10:02] MED LIST changes: +ASPI-183 PO; +ATOR40TA16 PO; +BRIL90TA PO; +GLIP5TAB8 PO; +GLUC1000 PO; -IOHEXOL 350 MG/ML 100 ML BTL (for Cath Lab) OTHER ONE; +LISI-515 PO; +METO25TA3 PO
[2017-10-25] MEDS ORDERED: XARE20TA PO (10:21)
[2017-10-25] MEDS ORDERED: ECASA81 PO (10:21)
[2017-10-25] MEDS ORDERED: VITA500T35 PO (10:21)
[2017-10-25] MEDS ORDERED: MULT400T PO (10:21)
[2017-10-25] MEDS ORDERED: PHENYLEPH/NS 1000 MCG/10 ML SYR IV ONE (12:00)
[2017-10-25] MEDS ORDERED: PROPOFOL 200 MG/20 ML AMP IV ONE (12:00)
[2017-10-25] MEDS ORDERED: ePHEDrine/NS 25 MG/5 ML SYRINGE IV ONE (12:00)
--- NOTE | 2017-10-25 22:30 | EKG ---
Date Performed: 10/25/2017 Time Performed: 10:26:00 PTAGE: 67 years EKG: A fib/flutter with variable block Abnormal ECG PREVIOUS TRACING : 01/07/2017 04.40 Compared to prior tracing, SR no longer present DOCTOR: Yadi Astudillo Interpretating Date/Time 10/25/2017 22:30:07
--- NOTE | 2017-10-26 14:41 | EKG ---
Date Performed: 10/25/2017 Time Performed: 14:30:56 PTAGE: 67 years EKG: Sinus rhythm . Normal ECG Since PREVIOUS TRACING , no significant change noted PREVIOUS TRACIN10/25/2017 10.26 DOCTOR: Raz Crespo Interpretating Date/Time 10/26/2017 14:39:59
--- NOTE | 2017-10-27 10:22 | MR ---
cc: YADI JACOBS DATE: 10/25/2017 INDICATION Atrial fibrillation/flutter. PROCEDURE PERFORMED DC cardioversion. PROCEDURE After the patient was sedated by anesthesia 50 joules biphasic shock was delivered and converted the patient into sinus rhythm. The patient remained stable and was discharged home in stable condition. DIAGNOSIS Successful cardioversion of atrial fibrillation. DISPOSITION Mr. Frost will continue his medical program including anticoagulation. I will see him back for followup in our office after discharge. Yadi Jacobs MD OQ/TLL /1:24 PM /10:17 AM
== END 2017-10-25 14:52 | disposition home or self-care (01) ==
LOC: HSDC 10:02 → HDIC 10:03 → HSDC 14:52
PROVIDERS: ATTEND Internal Medicine Interventional Cardiology
DX: I48.92 Unspecified atrial flutter (principal); I25.10 Atherosclerotic heart disease of native coronary artery without angina pectoris; I10 Essential (primary) hypertension; I21.4 Non-ST elevation (NSTEMI) myocardial infarction; E11.9 Type 2 diabetes mellitus without complications; E78.5 Hyperlipidemia, unspecified; Z79.01 Long term (current) use of anticoagulants; Z79.84 Long term (current) use of oral hypoglycemic drugs; Z79.82 Long term (current) use of aspirin
CPT/HCPCS: 92960; 93005; J2370